=== PATIENT | male | born 1945 | race African-American/Black ===

== ENCOUNTER 2020-06-15 11:21 | Emergency (ER) | payer MEDICARE, OTHER ==
[~2020-06-15] VITALS: Ht 180.3 cm; Wt 88.5 kg
--- NOTE | 2020-06-15 11:30 | NUR ---
ED Nurse Note: Pt ambulated to ed with merye stating that he has loss of taste and smell for 2-3 days. Pt reports he just wants COVID tested. Also reports he was positive COVID two weeks ago.
[2020-06-15 11:32] VITALS: BP 115/75
--- NOTE | 2020-06-15 11:47 | Emergency Room Report ---
History of Present Illness General Chief Complaint: General Complaint Source: Patient Present Illness HPI Patient is a 75-year-old male presents for increased anosmia. Patient had prior history of coronavirus infection several months ago and prolonged ICU stay. Currently taking anticoagulation with Eliquis. Denies any prior history of blood clots. Patient had not been having any fever. Denies any cough. He states he was recently exposed to his daughter who had known coronavirus exposure. Son is also here requesting testing. Allergies: Coded Allergies: No Known Allergies (Unverified , 06/15/20) COVID-19 Screening Contact w/high risk pt: No Experienced COVID-19 symptoms?: Yes COVID-19 Testing performed BLOCK OPERATOR: No Patient History Past Medical History: see triage record Reviewed Nursing Documentation: PMH: Agreed; PSxH: Agreed Nursing Documentation-PMH Hx Hypertension: Yes Hx Diabetes: Yes Review of Systems All Other Systems: negative except mentioned in HPI Physical Exam Vital Signs Date Time Temp Pulse Resp B/P (MAP) Pulse Ox O2 Delivery O2 Flow Rate FiO2 06/15/20 11:25 97.9 97 18 115/75 (88) 94 Room Air Sp02 EP Interpretation: reviewed, normal General Appearance: normal inspection, well appearing, no apparent distress, alert, GCS 15, non-toxic Head: atraumatic ENT: normal ENT inspection, hearing grossly normal, normal voice Neck: normal inspection, full range of motion, supple, no bony tend Respiratory: normal inspection, lungs clear, normal breath sounds, no respiratory distress, no retraction, no wheezing Cardiovascular #1: regular rate, rhythm, no edema Gastrointestinal: normal inspection, normal bowel sounds, non tender, soft, no guarding, no hernia Genitourinary: no CVA tenderness Musculoskeletal: normal inspection, back normal, normal range of motion Neurologic: alert, motor strength/tone normal, 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 Differential diagnosis include was not limited to sinusitis, upper respiratory infection, allergic rhinitis, coronavirus infection among others. Patient has a benign exam and does not appear to require any imaging or laboratory testing at this time. Patient was noted to have prior history of coronavirus infection which lessened suspicion for current coronavirus infection. Patient does not appear to have any respiratory distress and has normal oxygen saturation. Patient was advised to follow-up with outpatient coronavirus testing. He was advised to return if worse. This medical record is generated with [employer] shore man software. There may be some shore man discrepancies related to use of this software Last Vital Signs Date Time Temp Pulse Resp B/P (MAP) Pulse Ox O2 Delivery O2 Flow Rate FiO2 06/15/20 11:32 97.9 97 18 115/75 94 Room Air Status: improved Disposition: HOME, SELF-CARE Condition: Stable Referrals: [facility],REFERRING (PCP) Ousmane Landry MD Jun 15, 2020 11:47
[2020-06-15] MEDS ORDERED: VITAMIN D350 MCG PO (11:59)
[2020-06-15] MEDS ORDERED: LORATADINE10 M1 PO (11:59)
[2020-06-15 12:09] VITALS: BP 124/78
--- NOTE | 2020-06-15 12:09 | NUR ---
ER DISCHARGE NOTE: Patient is cleared to be discharged per ERMD, pt is aox4, on room air, with stable vital signs. pt was given dc and prescription instructions, pt was able to verbalize understanding, pt id band removed. pt is able to ambulate with steady gait. pt took all belongings.
--- NOTE | 2020-06-15 12:29 | Diagnostic Imaging Report ---
EXAM: XR Chest, 1 View CLINICAL HISTORY: SOB TECHNIQUE: Frontal view of the chest. COMPARISON: No relevant prior studies available. FINDINGS: Lungs: Elevated right hemidiaphragm. Right lung base atelectasis. Lungs otherwise clear. Pleural space: Unremarkable. No pneumothorax. Heart: Unremarkable. No cardiomegaly. Mediastinum: Unremarkable. Bones/joints: Unremarkable. IMPRESSION: No acute findings in the chest.
== END 2020-06-15 12:09 | disposition home or self-care (01) ==
LOC: EMR 11:43
DX: R43.0 Anosmia (principal); E11.9 Type 2 diabetes mellitus without complications; I10 Essential (primary) hypertension; Z86.19 Personal history of other infectious and parasitic diseases; Z79.01 Long term (current) use of anticoagulants
CPT/HCPCS: 71045; 93005; 99283